=== PATIENT | male | born 1980 | race Caucasian/White ===

== ENCOUNTER 2024-02-03 08:31 | Day surgery (SDC) | payer OTHER, SELFPAY ==
[2024-02-03] VITALS (18 sets, daily range): BP systolic 120–161; BP diastolic 76–104; PULSE 57–79; RESP 10–20; TEMP 36.8–37.4; O2SAT 94–100
--- NOTE | ~2024-02-03 | CT_ITS ---
CT abdomen pelvis w con Ordering provider: Adalid Oates III, DO History: . umbilical hernia pain . Comparison: None. Technique: CT abdomen with IV and without oral contrast. Radiation reduction technique utilized. Findings: VISUALIZED LOWER CHEST: Normal. Dependent atelectatic changes. UPPER ABDOMINAL ORGANS: Liver: Mild fat infiltration. Gallbladder: Normal. Spleen: Normal. Stomach/duodenum: Normal. Pancreas: Normal. Adrenals: Normal. Kidneys: Normal. Urinary bladder: Underfilled. VISUALIZED BOWEL AND MESENTERY: Slight dilatation of the small bowel proximal to the umbilicus sugges tive of partial versus complete obstruction. Follow-up and clinical evaluation advised. Normal append ix. . No free air or free fluid. No mesenteric lymphadenopathy. RETROPERITONEUM: Normal aorta. No retroperitoneal lymphadenopathy. MUSCULOSKELETAL: Small fat-containing anterior abdominal wall hernia. Umbilical hernia with underfill ed bowel content or mesentery which is most likely incarcerated. Strangulation cannot be excluded. Cl inical evaluation and Follow-up advised. Bilateral small fat-containing inguinal hernias Otherwise, T he superficial soft tissues are normal. Age appropriate degenerative changes of the spine. IMPRESSION: Incarcerated versus strangulated hernia with small bowel partial versus complete obstruction proximal to the area. Clinical evaluation and follow-up advised. Small fat-containing upper anterior abdominal wall hernia. Bilateral small fat-containing inguinal he rnia. Reviewed, dictated and finalized at location A. IMPRESSION: Incarcerated versus strangulated hernia with small bowel partial versus complet e obstruction proximal to the area. Clinical evaluation and follow-up advised. Small fat-containing upper anterior abdominal wall hernia. Bilateral small fat- containing inguinal hernia.
--- NOTE | 2024-02-03 08:38 | ED.ABDPAIN ---
HPI - Abdominal Pain General Chief Complaint: Abdominal Pain Stated Complaint: hernia, pain Time Seen by Provider: 02/03/24 08:33 History of Present Illness HPI narrative: Pt states he developed pain at his umbilical hernia site about an hour ago. Pt says sometimes the hernia is more prominent and he can push it back in but today it was too painful to reduce. Pt denies vomiting or fever. Related Data Allergies Allergy/AdvReac Type Severity Reaction Status Date / Time No Known Allergies Allergy Verified 02/03/24 08:37 Review of Systems Review of Systems: All systems reviewed & are unremarkable except as noted in HPI and below PMFSH Past Medical History Medical History No pertinent past medical history Surgical History Surgical History History of excision of mass benign neck tumor Family History Family History Mother Hypertension Grandparent Dementia Father Diverticulitis large intestine Social History Social History Smoking status: Never smoker Alcohol intake: current Drinks per week: 14 Substance use: current Substance use type: marijuana Exam Const: General: healthy appearing and no acute distress Nutritional Appearance: well nourished Orientation/consciousness: patient oriented x3 Limitations: no limitations Eyes: EOM: EOMs intact bilaterally Chest: Chest palpation & inspection: normal inspection of the chest Resp: Effort & Inspection: normal respiratory effort Auscultation: clear to auscultation bilaterally Cardio: Rate: regular rate Rhythm: regular rhythm GI: GI Palp: Yes Soft to palpation and Yes Tenderness to palpation present (GI) (umbilical hernia protruding and firm and tender to palpation) Auscultation: normal bowel sounds Skin: General skin exam: normal color Rashes: no rashes Wounds: no wounds Neuro: General: patient oriented x3, no meningeal signs, no focal motor deficits and CN's II-XI intact bilaterally Speech: normal speech Extrem: General: normal to inspection and no clubbing, cyanosis or edema Psych: Mental Status: mental status grossly normal Affect: normal affect Attitude: cooperative Course Vital Signs Vital signs: Vital Signs Temperature 98.3 F 02/03/24 08:34 Pulse Rate 59 L 02/03/24 08:34 Respiratory Rate 20 02/03/24 08:34 Blood Pressure 161/104 H 02/03/24 08:34 Pulse Oximetry 100 02/03/24 08:34 Oxygen Delivery Room Air 02/03/24 08:34 Temperature 99.4 F 02/03/24 15:35 Pulse Rate 62 02/03/24 17:45 Respiratory Rate 16 02/03/24 17:45 Blood Pressure 120/84 02/03/24 17:45 Pulse Oximetry 97 02/03/24 17:00 Oxygen Delivery Room Air 02/03/24 17:45 Oxygen Flow Rate 10 02/03/24 15:35 MDM - Abdominal Pain MDM Narrative Medical decision making narrative: concern for incarcerated umbilical hernia given the tenderness. will get labs and CT abd/pelvis to assess. Will give pain meds and nausea meds IV. CT shows incarcerated strangulated umbilical hernia. discussed with Dr Foley, and will call OR about taking him to surgery. Lab Data 02/03/24 08:39 02/03/24 08:39 Labs: Lab Results 02/03/24 Range/Units 08:39 WBC 4.8 (4.5-10.0) K/mm3 RBC 5.64 (4.6-6.20) M/mm3 Hgb 16.1 (14.0-18.0) g/dL Hct 47.2 (42.0-52.0) % MCV 83.7 (80-100) fl MCH 28.5 (26-34) pg MCHC 34.1 (32-36) g/dl RDW 12.6 (11.5-14.5) % Plt Count 219 (150-375) k/mm3 MPV 8.7 (7.4-10.4) fl Immature Gran % (Auto) 0.2 (0-0.5) % Neut % (Auto) 68.4 (45.5-73.1) % Lymph % (Auto) 21.8 (18.3-44.2) % Lyman % (Auto) 8.2 (2.6-8.5) % Eos % (Auto) 0.8 (0-4.4) % Baso % (Auto) 0.6 (0.2-1.2) % Lymph # (Auto) 1.04 (0.9-3.2) K/mm3 Lyman
[2024-02-03] MEDS: ONDANSETRON INJ 4 MG/2 ML VIAL IV PUSH (08:42)
[2024-02-03] MEDS: MORPHINE SULFATE (*CRX) 4 MG/ML INJ IV PUSH ×2 (08:43→11:46)
[2024-02-03 08:48] LABS: Basophils Percent Auto 0.6 % (0.2-1.2); Eosinophils Percent Auto 0.8 % (0-4.4); Hematocrit 47.2 % (42.0-52.0); Hemoglobin 16.1 g/dL (14.0-18.0); Immature Granulocyte Absolute 0.01 K/mm3 (0.00-0.031); Immature Granulocyte Percent A 0.2 % (0-0.5); Lymphocytes Absolute Auto 1.04 K/mm3 (0.9-3.2); Lymphocytes Percent Auto 21.8 % (18.3-44.2); Mean Corpuscular HGB Conc 34.1 g/dl (32-36); Mean Corpuscular Hemoglobin 28.5 pg (26-34); Mean Corpuscular Volume 83.7 fl (80-100); Mean Platelet Volume 8.7 fl (7.4-10.4); Monocytes Absolute Auto 0.4 K/mm3 (0.1-0.6); Monocytes Percent Auto 8.2 % (2.6-8.5); Neutrophils Absolute Auto 3.3 K/mm3 (1.3-6.7); Neutrophils Percent Auto 68.4 % (45.5-73.1); Platelet Count Result 219 k/mm3 (150-375); Red Blood Count 5.64 M/mm3 (4.6-6.20); Red Cell Distribution Width 12.6 % (11.5-14.5); White Blood Count 4.8 K/mm3 (4.5-10.0)
[2024-02-03 08:55] LABS: Alanine Aminotransferase 33 U/L (6-50); Albumin Level 4.8 g/dL (3.5-5.1); Alkaline Phosphatase 90 U/L (38-126); Anion Gap 8 mmol/L (4-12); Aspartate Amino Transferase 31 U/L (17-59); Blood Urea Nitrogen 14 mg/dL (9-20); Calcium 9.5 mg/dL (8.4-10.2); Carbon Dioxide 26 mmol/L (22-30); Chloride 105 mmol/L (98-107); Estimated CRCL calculation 106 ml/min; Estimated Glomerular Filt Rate > 60; Glucose 103 mg/dL (65-110); Potassium 3.9 mmol/L (3.4-5.0); Sodium 139 mmol/L (137-145)
[2024-02-03 09:01] LABS: INR 0.9; Prothrombin Time 12.8 Seconds (11.1-14.7)
[2024-02-03 09:02] LABS: Partial Thromboplastin Time 30.5 Seconds (22.3-36.8)
--- NOTE | 2024-02-03 12:33 | PM.IMHP ---
H&P: HPI History of Present Illness Date/Time: 02/03/24 12:33 Chief Complaint: Incarcerated umbilical hernia Narrative: this is a 43-year-old man who presented to the emergency department this morning with periumbilical pain and swelling. He 1st noticed this around 7:00 a.m. this morning. He noticed a hard bulge at his umbilicus that was painful and unable to reduce. He has known that he had an umbilical hernia for many years. He states he has had this for probably at least 15 years. It has never been painful heart like this in the past. He was fairly active yesterday but denied any problems at that time. He denies any heavy lifting or straining this morning around the time when he noticed the bulge. He did have a normal bowel movement today. He denies any nausea or vomiting. Review of Systems Review of Systems: All systems reviewed & are unremarkable except as noted in HPI and below Eyes: Eyes: Denies change in vision ENT: Denies hearing loss, Denies neck pain and Denies sore throat Cardiovascular: Cardiovascular: Denies chest pain and Denies dyspnea Respiratory: Respiratory: Denies cough, Denies dyspnea and Denies wheezing Gastrointestinal: Gastrointestinal: Reports as per HPI Genitourinary: Genitourinary: Denies hematuria and Denies dysuria Musculoskeletal: Musculoskeletal: Denies arthralgias, Denies joint swelling and Denies neck pain Allergic/Immunologic: Allergic/Immunologic: Denies wheezing [facility] Past Medical History Medical History (Updated 02/03/24 @ 12:37 by Abhi Foley DO) No pertinent past medical history Surgical History Surgical History (Updated 02/03/24 @ 12:37 by Abhi Foley DO) History of excision of mass benign neck tumor Family History Family History (Updated 02/03/24 @ 12:38 by Abhi Foley DO) Mother Hypertension Grandparent Dementia Father Diverticulitis large intestine Social History Social History (Updated 02/03/24 @ 12:38 by Abhi Foley DO) Smoking status: Never smoker Alcohol intake: current Drinks per week: 14 Substance use: current Substance use type: marijuana Meds Home Medications and Allergies Allergies Allergy/AdvReac Type Severity Reaction Status Date / Time No Known Allergies Allergy Verified 02/03/24 08:37 Vital Signs Vital Signs - 24 hr 02/03/24 08:34 02/03/24 08:59 02/03/24 09:00 Temperature 36.8 C Pulse Rate 59 L Respiratory Rate 20 Blood Pressure 161/104 H 132/92 H Pulse Oximetry 100 100 Oxygen Delivery Room Air 02/03/24 09:14 02/03/24 09:15 02/03/24 09:30 Temperature Pulse Rate 60 Respiratory Rate 20 Blood Pressure 143/97 H Pulse Oximetry 100 100 95 Oxygen Delivery 02/03/24 10:00 Temperature Pulse Rate 57 L Respiratory Rate 16 Blood Pressure 129/76 Pulse Oximetry 95 Oxygen Delivery Exam Const: General: alert; No acute distress Orientation/consciousness: patient oriented x3 Limitations: no limitations HENMT: Head: normocephalic and atraumatic Ears: hearing grossly normal bilaterally Face/Nose/Sinus: Normal external nose present and Normal nares present Mouth: Yes Normal oral and palatal mucosa present and Yes moist mucous membranes Eyes: General: appearance normal, both eyes and all related structures Conjunctivae: conjunctivae normal Sclera: sclerae normal Pupils: Equal, round and reactive pupils present EOM: EOMs intact bilaterally Neck: Neck: normal visual inspection, full ROM, no lymphadenopathy, supple and no JVD Lymphatic: no lymphadenopathy noted Chest: Chest palpation & inspection: normal inspection of the chest Resp: Effort & Inspection: normal respiratory effort and able to speak in complete sentences Auscultation: clear to auscultation bilaterally Percussion: percussion normal Cardio: Jugular venous distension: no JVD Rate: regular rate Rhythm: regular rhythm Heart sounds: S1 normal heart sound present and S2 no
[2024-02-03] MEDS: LACTATED RINGERS 1,000 ML 30 ML IV CONT ×2 (13:30→16:04)
--- NOTE | 2024-02-03 13:35 | WPDANESEPPF ---
Anes - Initial Pre Proc Eval Procedure: Operation Date: 02/03/24 14:00 Proposed Procedures p Open Incarcerated Umbilical Hernia Repair, - Abhi Foley DO s Possible Bowel Resection - Abhi Foley DO Date/Time: 02/03/24 13:35 Surgeon: Abhi Foley DO Pre Op Diagnosis: hernia, pain Patient Data Age: 43 Gender: M Height: 1.83 m Weight: 103.8 kg Last Vital Signs Temp 98.3 F 02/03/24 08:34 Pulse 68 02/03/24 12:36 Resp 16 02/03/24 10:00 BP 123/80 02/03/24 12:36 Pulse Ox 95 02/03/24 10:00 O2 Del Method Room Air 02/03/24 08:34 Allergies Allergy/AdvReac Type Severity Reaction Status Date / Time No Known Allergies Allergy Verified 02/03/24 08:37 Laboratory Tests 02/03/24 08:39 WBC 4.8 K/mm3 (4.5-10.0) RBC 5.64 M/mm3 (4.6-6.20) Hgb 16.1 g/dL (14.0-18.0) Hct 47.2 % (42.0-52.0) MCV 83.7 fl (80-100) MCH 28.5 pg (26-34) MCHC 34.1 g/dl (32-36) RDW 12.6 % (11.5-14.5) Plt Count 219 k/mm3 (150-375) MPV 8.7 fl (7.4-10.4) Immature Gran % (Auto) 0.2 % (0-0.5) Neut % (Auto) 68.4 % (45.5-73.1) Lymph % (Auto) 21.8 % (18.3-44.2) Stark % (Auto) 8.2 % (2.6-8.5) Eos % (Auto) 0.8 % (0-4.4) Baso % (Auto) 0.6 % (0.2-1.2) Lymph # (Auto) 1.04 K/mm3 (0.9-3.2) Stark # (Auto) 0.4 K/mm3 (0.1-0.6) Eos # (Auto) 0.0 K/mm3 (0-0.3) Baso # (Auto) 0.0 K/mm3 (0.0-0.1) Abs Immat Gran (auto) 0.01 K/mm3 (0.00-0.031) Absolute Neuts (auto) 3.3 K/mm3 (1.3-6.7) Absolute Nucleated RBC 0.000 K/mm3 (0.0-0.012) Nucleated RBC % 0.0 % (0.0-0.2) PT 12.8 Seconds (11.1-14.7) INR 0.9 APTT 30.5 Seconds (22.3-36.8) Sodium 139 mmol/L (137-145) Potassium 3.9 mmol/L (3.4-5.0) Chloride 105 mmol/L (98-107) Carbon Dioxide 26 mmol/L (22-30) Anion Gap 8 mmol/L (4-12) BUN 14 mg/dL (9-20) Creatinine 1.00 mg/dL (0.7-1.3) Estim Creat Clear Calc 106 ml/min Estimated GFR > 60 (59 - ) Glucose 103 mg/dL (65-110) Calcium 9.5 mg/dL (8.4-10.2) Total Bilirubin 1.0 mg/dL (0.2-1.3) AST 31 U/L (17-59) ALT 33 U/L (6-50) Alkaline Phosphatase 90 U/L (38-126) Total Protein 8.0 g/dL (6.3-8.2) Albumin 4.8 g/dL (3.5-5.1) Patient hx anesthesia problems: none Family hx anesthesia problems: none Results Review: All pre-operative results and documents have been reviewed as part of the pre-operative evaluation. [facility] Past Medical History Medical History No pertinent past medical history Surgical History Surgical History History of excision of mass benign neck tumor Family History Family History Mother Hypertension Grandparent Dementia Father Diverticulitis large intestine Social History Social History Smoking status: Never smoker Alcohol intake: current Drinks per week: 14 Substance use: current Substance use type: marijuana Anes - Eval Final PreProcedure Day of Procedure 02/03/24 13:35 Patient weight: obese Heart: regular rate and rhythm Lungs: clear to auscultation Airway: Mallampati scale class II Neurological: alert and oriented Last oral intake: >/= 8 hours ASA classification: II Emergent: yes Anesthetic plan: proceed Anesthesia type and monitoring: general ETT and standard monitoring Results Review: All pre-operative results and documents have been reviewed as part of the pre-operative evaluation. 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 Informed Consent: The patient's anesthetic plan and its attendant risks and benefits were discussed with the patient/family/PO
--- NOTE | 2024-02-03 14:06 | WPDHPUPDATE1 ---
History and Physical Update Update Date/Time: 02/03/24 14:06 History and Physical has been reviewed, including an updated exam of the patient. There are NO changes in the patient's condition. Risks, benefits, and alternatives have been discussed and questions answered. Patient agrees to proceed with procedure.
[2024-02-03] MEDS: ceFAZolin 2 GM/D5W 50 ML 2 GM/50 ML BAG IVPB (14:25)
[2024-02-03] MEDS: BUPIVACAINE/EPINEPHRINE 0.5% 10 ML VIAL 30 ML INFILTRATE (14:58)
--- NOTE | 2024-02-03 15:33 | W.PM.PROC2 ---
Procedure Note - Detailed Date of Procedure 02/03/24 Pre-op Diagnosis Incarcerated umbilical hernia Post-op Diagnosis Same (2 cm incarcerated umbilical hernia) Procedure Performed Open 2 cm incarcerated umbilical hernia repair with 6.[address] hernia patch Surgeon Abhi Foley, DO Anesthesia General and Local (0.5% bupivacaine with epinephrine) Indications This is a 43-year-old man who presented to the emergency department with acute onset of umbilical pain and a hard umbilical bulge that started this morning. He had known he had an umbilical hernia for many years but it had not become a problem until this morning. He was unable to reduce the hernia by laying down and applying pressure. In the emergency department the hernia was also not reducible. A CT abdomen and pelvis showed evidence of an incarcerated hernia containing bowel. I examined the patient initially and was unable to reduce the hernia. I discussed proceeding with emergent repair. Shortly after my evaluation I was called back into the room and the patient states that it spontaneously reduced. I gave the patient the option of going home with the risk of recurrent incarceration or proceeding with urgent repair. Patient wished to proceed with repair. I recommended proceeding with open incarcerated umbilical hernia repair with mesh, possible resection. Findings Open incarcerated umbilical hernia repair was performed. The patient was found have a 2 cm umbilical hernia. The hernia sac was excised and sent to the lab for pathology. The carefully inspected the bowel through what I can see through the hernia defect and there did not appear to any evidence of ischemic bowel. This was a somewhat limited exam due to the small size of the hernia defect. I then chose to repair the hernia with mesh. A 6.[address] hernia mesh was chosen. This was placed within a preperitoneal pocket and secured to the fascia using 0 Ethibond transfascial sutures. Description of Procedure Procedure as well as risks, benefits, and alternatives were discussed with the patient. Written consent was obtained and placed in chart prior to procedure. Patient was brought back to surgical suite. He was placed supine on operating table. He was then intubated by Anesthesia Department. His abdomen was prepped and draped in sterile fashion using chlorhexidine prep. 0.5% bupivacaine with epinephrine was infiltrated locally around the operative area. A 6 cm curvilinear incision was made just inferior to the umbilicus using a 15 blade scalpel. Electrocautery was used for hemostasis and for dissection down through the subcutaneous fat. Hernia sac was encountered and this was carefully freed up from surrounding subcutaneous fat using electrocautery. The hernia sac was freed up all the way down to the level of the fascia. The hernia sac was excised using electrocautery. The umbilical stalk was then lifted off of the fascia with electrocautery. The hernia defect was then measured. This was measuring approximately 2 cm. The decision was made to use a 6.[address] hernia patch. The peritoneum was cleared under the fascia circumferentially around the hernia using blunt dissection and electrocautery. The defect in the peritoneum from excising the hernia sac was then closed using 3-0 Vicryl [id number] suture. Once a wide enough pocket was created for the mesh, the mesh was then placed within this preperitoneal pocket and laid out flat centered on the hernia defect. The mesh appeared to be sitting in proper position. The mesh was then secured at the lateral edges using 0 Ethibond U-stitch trans fascial sutures. The fascia was then closed over the mesh with incorporating the anterior portion of the mesh using 0 Ethibond [id number] sutures. The repair was inspected and appeared secure. 0.5% bupivacaine with epinephrine was infiltrated around the fascia and subcutaneous space. The umbilical stalk was the
[2024-02-03] MEDS: fentaNYL CITRATE INJ (*CRX) 100 MCG/2 ML VIAL 25 MCG IV PUSH (16:52)
== END 2024-02-03 17:57 | disposition home or self-care (01) ==
LOC: ANHED 10:21 → ANHSURGERY 10:32
PROVIDERS: Emergency Provider Emergency Medicine; Visit Provider Surgery
PROC: (CPT 49592; principal; 2024-02-03 14:00)
DX: K42.0 Umbilical hernia with obstruction, without gangrene (principal); F12.90 Cannabis use, unspecified, uncomplicated; E66.9 Obesity, unspecified; Z68.31 Body mass index [BMI] 31.0-31.9, adult
CPT/HCPCS: 49592; 36415; 74177; 80053; 85025; 85610; 85730; 88302; 96374; 96375; 96376; 99285; C1781; J0690; J1100; J1170; J1885; J2250; J2270; J2405; J2704; J3010; J7120; Q9967